=== PATIENT | female | born 1955 | race Asian ===

== ENCOUNTER 2019-12-23 14:39 | Emergency (ER) | payer OTHER ==
[~2019-12-23] VITALS: Ht 165.1 cm; Wt 85.7 kg
[2019-12-23 14:45] VITALS: Ht 165.1 cm; Wt 85.7 kg
[2019-12-23 16:00] LABS: UA SPECIFIC GRAVITY 1.015 (1.005-1.035); microscopic required? YES; urine erythrocyte 3+ (NEGATIVE)
[2019-12-23 16:02] VITALS: BP 148/63
== END 2019-12-23 16:02 | disposition home or self-care (01) ==
LOC: ED 14:39
PROVIDERS: Emergency Medicine
DX: N39.0 Urinary tract infection, site not specified (principal); I10 Essential (primary) hypertension; E11.9 Type 2 diabetes mellitus without complications; E78.00 Pure hypercholesterolemia, unspecified; Z98.890 Other specified postprocedural states